=== PATIENT | male | born 1960 | race African-American/Black ===

== ENCOUNTER → 2016-11-06 | Outpatient (CLI) | payer OTHER ==
[2015-06-14 17:41] VITALS: BP 166/87
[2016-11-06 09:11] LABS: BASOPHILS % (AUTO) 0.8 % (0.2-1.0); EOSINOPHILS # (AUTO) 0.3 x10^3/uL (0.0-0.2); EOSINOPHILS % (AUTO) 5.3 % (0.9-2.9); HEMATOCRIT 36.1 % (42.0-54.0); HEMOGLOBIN 11.9 g/dL (13.5-18.0); LYMPHOCYTES # (AUTO) 1.7 X10^3/uL (1.3-2.9); LYMPHOCYTES % (AUTO) 31.2 % (21.0-51.0); MEAN CORPUSCULAR HEMOGLOBIN 29.4 pg (27.0-34.0); MEAN CORPUSCULAR HGB CONC 32.9 g/dL (33.0-35.0); MEAN CORPUSCULAR VOLUME 89.2 fL (80.0-100.0); MEAN PLATELET VOLUME 8.2 fL (7.4-11.0); MONOCYTES # (AUTO) 0.6 x10^3/uL (0.3-0.8); MONOCYTES % (AUTO) 10.2 % (0.0-13.0); NEUTROPHILS # (AUTO) 2.9 x10^3/uL (2.2-4.8); NEUTROPHILS % (AUTO) 52.5 % (42.0-75.0); PLATELET COUNT 244 X10^3/uL (150.0-450.0); RED BLOOD COUNT 4.05 X10^6/uL (4.7-6.0); WHITE BLOOD COUNT 5.6 X10^3/uL (3.6-10.0)
[2016-11-06 09:24] LABS: CREATININE,URINE 108.8 mg/dL (40-278); MICROALBUMIN,URINE 62.2 mg/L
[2016-11-06 09:38] LABS: RETICULOCYTE % 1.08 % (0.8-2.2)
[2016-11-06 09:48] LABS: TRANSFERRIN 192 mg/dL (202-364)
[2016-11-06 10:04] LABS: ALANINE AMINOTRANSFERASE 25 Units/L (12-78); ALBUMIN 3.4 g/dL (3.4-5.0); ALKALINE PHOSPHATASE 103 Units/L (46-116); ASPARTATE AMINO TRANSFERASE 14 Units/L (15-37); BLOOD UREA NITROGEN 10 mg/dL (7-18); CALCIUM 8.6 mg/dL (8.5-10.1); CARBON DIOXIDE 27.3 mmol/L (21-32); CHLORIDE 105 mmol/L (98-107); CHOL/HDL RATIO 3.3 (0.0-5.0); CHOLESTEROL 156 mg/dL (0-200); COR NA(FOR HYPERGLY) 144 mmol/L (136-145); CREATININE 0.83 mg/dL (0.70-1.30); GLUCOSE 168 mg/dL (65-99); HDL CHOLESTEROL 48 mg/dL (40-60); SODIUM 142 mmol/L (136-145); TRIGLYCERIDES 42 mg/dL (0-150); TSH (3RD GENERATION) 2.339 uIU/mL (0.358-3.74); eGFR BLACK RACES > 60 (>60); eGFR NON BLACK RACES > 60 (>60)
[2016-11-06 10:10] LABS: ERYTHROCYTE SEDIMENTATION RATE 34 MM/HOUR (0-15)
[2016-11-10 13:40] LABS: ANTI-NUCLEAR ANTIBODY TEST None Detected (None Detected)
== END ==
LOC: LAB 07:48
PROVIDERS: ATTEND Nurse Practitioner Family
DX: I10 Essential (primary) hypertension (principal); M15.8 Other polyosteoarthritis; E11.40 Type 2 diabetes mellitus with diabetic neuropathy, unspecified; D64.9 Anemia, unspecified
CPT/HCPCS: 36415; 80053; 80061; 82043; 82607; 82615; 82728; 82746; 83036; 83918; 84443; 84466; 85025; 85045; 85652; 86140; 86256; 86308; 86340

== ENCOUNTER → 2017-02-16 | Outpatient (CLI) | payer OTHER ==
[2015-06-14 17:41] VITALS: BP 166/87
[2017-02-16 07:36] LABS: BASOPHILS % (AUTO) 0.8 % (0.2-1.0); EOSINOPHILS # (AUTO) 0.3 x10^3/uL (0.0-0.2); EOSINOPHILS % (AUTO) 6.1 % (0.9-2.9); HEMATOCRIT 32.2 % (42.0-54.0); HEMOGLOBIN 10.9 g/dL (13.5-18.0); LYMPHOCYTES # (AUTO) 1.7 X10^3/uL (1.3-2.9); LYMPHOCYTES % (AUTO) 35.1 % (21.0-51.0); MEAN CORPUSCULAR HEMOGLOBIN 30.4 pg (27.0-34.0); MEAN CORPUSCULAR HGB CONC 33.9 g/dL (33.0-35.0); MEAN CORPUSCULAR VOLUME 89.5 fL (80.0-100.0); MEAN PLATELET VOLUME 7.8 fL (7.4-11.0); MONOCYTES # (AUTO) 0.6 x10^3/uL (0.3-0.8); MONOCYTES % (AUTO) 13.1 % (0.0-13.0); NEUTROPHILS # (AUTO) 2.2 x10^3/uL (2.2-4.8); NEUTROPHILS % (AUTO) 44.9 % (42.0-75.0); PLATELET COUNT 251 X10^3/uL (150.0-450.0); RED CELL DISTRIBUTION WIDTH 14.4 % (11.6-16.5); WHITE BLOOD COUNT 4.8 X10^3/uL (3.6-10.0)
--- NOTE | 2017-02-16 07:38 | RAD ---
HISTORY: Right shoulder pain Study: Right shoulder three view Comparison: None Findings: The patient is status post right shoulder hemiarthroplasty. The prosthetic humeral head is in good p osition within the glenoid. Visualized distal clavicle is intact as is the AC joint, scapula and vis ualized right upper ribs. No periprosthetic fracture is identified. IMPRESSION: Status post right shoulder hemiarthroplasty in good position without acute findings Reported By:
[2017-02-16 07:41] LABS: CREATININE,URINE 148.16 mg/dL (40-278); MICROALBUMIN,URINE 38.9 mg/L
[2017-02-16 07:44] LABS: HEMOGLOBIN A1C 8.5 % (4.5-6.2)
[2017-02-16 07:46] LABS: ALANINE AMINOTRANSFERASE 24 Units/L (12-78); ALBUMIN 3.3 g/dL (3.4-5.0); ALKALINE PHOSPHATASE 106 Units/L (46-116); ASPARTATE AMINO TRANSFERASE 17 Units/L (15-37); BLOOD UREA NITROGEN 19 mg/dL (7-18); CALCIUM 8.2 mg/dL (8.5-10.1); CHLORIDE 101 mmol/L (98-107); CHOL/HDL RATIO 3.2 (0.0-5.0); CHOLESTEROL 119 mg/dL (0-200); COR CA(FOR HYPOALB) 8.8 mg/dL (8.5-10.1); COR NA(FOR HYPERGLY) 140 mmol/L (136-145); CREATININE 1.24 mg/dL (0.70-1.30); GLUCOSE 205 mg/dL (65-99); HDL CHOLESTEROL 37 mg/dL (40-60); SODIUM 137 mmol/L (136-145); TOTAL PROTEIN 8.3 g/dL (6.4-8.2); TRIGLYCERIDES 76 mg/dL (0-150); eGFR BLACK RACES > 60 (>60); eGFR NON BLACK RACES > 60 (>60)
[2017-02-16 08:29] LABS: IRON 65 ug/dL (50-175); TOTAL IRON BINDING CAPACITY 220 ug/dL (250-450)
[2017-02-16 08:40] LABS: ERYTHROCYTE SEDIMENTATION RATE 36 MM/HOUR (0-15)
== END ==
LOC: LAB 06:47
PROVIDERS: ATTEND Nurse Practitioner Family
DX: D53.8 Other specified nutritional anemias (principal); I10 Essential (primary) hypertension; E11.69 Type 2 diabetes mellitus with other specified complication; M25.511 Pain in right shoulder; E55.9 Vitamin D deficiency, unspecified
CPT/HCPCS: 36415; 73030; 80053; 80061; 82043; 82306; 82746; 83036; 83540; 83550; 85025; 85652; 86140

== ENCOUNTER → 2017-08-26 | Outpatient (CLI) | payer OTHER ==
[2015-06-14 17:41] VITALS: BP 166/87
[2017-08-26 08:03] LABS: CREATININE,URINE 127.37 mg/dL (40-278)
[2017-08-26 08:05] LABS: BASOPHILS # (AUTO) 0.1 X10^3/uL (0.0-0.1); BASOPHILS % (AUTO) 1.1 % (0.2-1.0); EOSINOPHILS # (AUTO) 0.5 x10^3/uL (0.0-0.2); EOSINOPHILS % (AUTO) 6.6 % (0.9-2.9); HEMATOCRIT 35.5 % (42.0-54.0); HEMOGLOBIN 11.8 g/dL (13.5-18.0); LYMPHOCYTES # (AUTO) 2.2 X10^3/uL (1.3-2.9); LYMPHOCYTES % (AUTO) 29.8 % (21.0-51.0); MEAN CORPUSCULAR HEMOGLOBIN 29.4 pg (27.0-34.0); MEAN CORPUSCULAR HGB CONC 33.3 g/dL (33.0-35.0); MEAN CORPUSCULAR VOLUME 88.1 fL (80.0-100.0); MONOCYTES # (AUTO) 0.7 x10^3/uL (0.3-0.8); MONOCYTES % (AUTO) 9.9 % (0.0-13.0); NEUTROPHILS # (AUTO) 3.8 x10^3/uL (2.2-4.8); NEUTROPHILS % (AUTO) 52.6 % (42.0-75.0); PLATELET COUNT 212 X10^3/uL (150.0-450.0); RED BLOOD COUNT 4.03 X10^6/uL (4.7-6.0); RED CELL DISTRIBUTION WIDTH 14.7 % (11.6-16.5); WHITE BLOOD COUNT 7.2 X10^3/uL (3.6-10.0)
[2017-08-26 08:08] LABS: ALANINE AMINOTRANSFERASE 25 Units/L (12-78); ALBUMIN 3.2 g/dL (3.4-5.0); ALKALINE PHOSPHATASE 135 Units/L (46-116); ASPARTATE AMINO TRANSFERASE 13 Units/L (15-37); BLOOD UREA NITROGEN 12 mg/dL (7-18); CALCIUM 8.8 mg/dL (8.5-10.1); CARBON DIOXIDE 27.7 mmol/L (21-32); CHLORIDE 99 mmol/L (98-107); CHOL/HDL RATIO 3.2 (0.0-5.0); CHOLESTEROL 131 mg/dL (0-200); COR CA(FOR HYPOALB) 9.4 mg/dL (8.5-10.1); COR NA(FOR HYPERGLY) 141 mmol/L (136-145); CREATININE 1.13 mg/dL (0.70-1.30); HDL CHOLESTEROL 41 mg/dL (40-60); SODIUM 135 mmol/L (136-145); TOTAL PROTEIN 8.7 g/dL (6.4-8.2); TRIGLYCERIDES 55 mg/dL (0-150); eGFR BLACK RACES > 60 (>60); eGFR NON BLACK RACES > 60 (>60)
[2017-08-26 08:12] LABS: PLATELET MORPHOLOGY COMMENT NORMAL (NORMAL)
[2017-08-26 08:15] LABS: MICROALBUMIN,URINE 111.7 mg/L
[2017-08-26 08:25] LABS: IRON 39 ug/dL (50-175); TOTAL IRON BINDING CAPACITY 241 ug/dL (250-450); TOTAL PSA 0.63 ng/mL (0.13-4.0)
[2017-08-26 08:29] LABS: HEMOGLOBIN A1C 11.2 % (4.5-6.2)
== END ==
LOC: LAB 07:13
PROVIDERS: ATTEND Nurse Practitioner Family
DX: R35.8 Other polyuria (principal); Z86.39 Personal history of other endocrine, nutritional and metabolic disease; D53.8 Other specified nutritional anemias; E11.9 Type 2 diabetes mellitus without complications
CPT/HCPCS: 36415; 80053; 80061; 82043; 82306; 82728; 82746; 83036; 83540; 83550; 84153; 85025

== ENCOUNTER → 2017-09-28 | Outpatient (CLI) | payer OTHER ==
[2015-06-14 17:41] VITALS: BP 166/87
--- NOTE | 2017-09-28 12:50 | RAD ---
HISTORY: Right shoulder pain. No history of trauma. Study: Right shoulder: Three views. The external and internal rotated images are overpenetrated, p articular the externally rotated. Comparison: 02/16/2017 Findings: Minimal acromioclavicular joint degeneration is noted. A right shoulder prosthesis is present appear ing to be slightly superiorly subluxed, unchanged. There is thinning of the subacromial space. Ther e appears to be a small amount of heterotopic bone formation. The stem of the prosthesis appears to be imbedded in methacrylate. The stem of the prosthesis is mildly angulated in the proximal humerus, unchanged. Moderate glenohumeral joint deformity is noted, most likely due to degenerative change. IMPRESSION: 1. A right shoulder prosthesis is present without complicating features. 2. No significant change is noted when compared to the prior examination. Reported By:
== END ==
LOC: RAD 09:39
PROVIDERS: ATTEND Nurse Practitioner Family
DX: M25.511 Pain in right shoulder (principal)
CPT/HCPCS: 73030

== ENCOUNTER → 2017-11-03 | Outpatient (CLI) | payer OTHER ==
[2015-06-14 17:41] VITALS: BP 166/87
--- NOTE | 2017-11-03 08:56 | RAD ---
HISTORY: Shortness of breath Study: Two views the chest Comparison: June 14, 2015 Findings: The trachea is midline. The cardiac silhouette is enlarged and similar in appearance to prior exam. The lungs are clear without focal infiltrate or effusion. The aorta is partially calcified and to rtuous. Postoperative changes of right shoulder arthroplasty are partially visualized. IMPRESSION: 1. Cardiomegaly. Reported By:
[2017-11-03 09:07] LABS: BASOPHILS # (AUTO) 0.1 X10^3/uL (0.0-0.1); BASOPHILS % (AUTO) 0.7 % (0.2-1.0); EOSINOPHILS # (AUTO) 0.3 x10^3/uL (0.0-0.2); EOSINOPHILS % (AUTO) 3.2 % (0.9-2.9); HEMATOCRIT 32.9 % (42.0-54.0); HEMOGLOBIN 11.1 g/dL (13.5-18.0); LYMPHOCYTES % (AUTO) 23.4 % (21.0-51.0); MEAN CORPUSCULAR HEMOGLOBIN 28.1 pg (27.0-34.0); MEAN CORPUSCULAR HGB CONC 33.6 g/dL (33.0-35.0); MEAN CORPUSCULAR VOLUME 83.7 fL (80.0-100.0); MEAN PLATELET VOLUME 7.6 fL (7.4-11.0); MONOCYTES # (AUTO) 0.7 x10^3/uL (0.3-0.8); MONOCYTES % (AUTO) 8.1 % (0.0-13.0); NEUTROPHILS # (AUTO) 5.7 x10^3/uL (2.2-4.8); NEUTROPHILS % (AUTO) 64.6 % (42.0-75.0); PLATELET COUNT 481 X10^3/uL (150.0-450.0); RED BLOOD COUNT 3.93 X10^6/uL (4.7-6.0); RED CELL DISTRIBUTION WIDTH 15.1 % (11.6-16.5); WHITE BLOOD COUNT 8.8 X10^3/uL (3.6-10.0)
[2017-11-03 09:28] LABS: ALANINE AMINOTRANSFERASE 42 Units/L (12-78); ALBUMIN 2.9 g/dL (3.4-5.0); ALKALINE PHOSPHATASE 89 Units/L (46-116); ASPARTATE AMINO TRANSFERASE 24 Units/L (15-37); BLOOD UREA NITROGEN 13 mg/dL (7-18); CALCIUM 8.8 mg/dL (8.5-10.1); CARBON DIOXIDE 24.6 mmol/L (21-32); CHLORIDE 100 mmol/L (98-107); COR CA(FOR HYPOALB) 9.7 mg/dL (8.5-10.1); COR NA(FOR HYPERGLY) 139 mmol/L (136-145); SODIUM 137 mmol/L (136-145); TOTAL PROTEIN 11.2 g/dL (6.4-8.2); eGFR BLACK RACES > 60 (>60); eGFR NON BLACK RACES > 60 (>60)
== END | disposition home or self-care (01) | DRG 204 ==
LOC: LAB 08:17
PROVIDERS: ATTEND Nurse Practitioner Family
DX: R06.02 Shortness of breath (principal); I51.7 Cardiomegaly
CPT/HCPCS: 36415; 71046; 80053; 85025

== ENCOUNTER → 2017-11-24 | Outpatient (CLI) | payer OTHER ==
[2015-06-14 17:41] VITALS: BP 166/87
[2017-11-24 08:56] LABS: CREATININE,URINE 182.88 mg/dL (40-278); MICROALBUMIN,URINE 44.5 mg/L
[2017-11-24 09:06] LABS: CHOL/HDL RATIO 3.3 (0.0-5.0)
--- NOTE | 2017-11-24 09:08 | RAD ---
Examination: X-rays of the right ankle. Clinical history: Chronic right ankle pain. Technique: Three views of the right ankle were obtained. Comparison: None available. Findings: A medially placed metallic plate and multiple screws is seen associated with the distal tibia, risk management internship ally fixating an old healed fracture. Calcific/ossific densities are seen at the inferior aspects of the medial and lateral malleoli, likel y due to accessory ossicles or sequela from old injuries. No acute fracture, dislocation, or destructive bony lesion is noted. Mild to moderate osteoarthritic changes are noted at the tibiotalar joint. Bony spurring is seen at the plantar and posterior aspects of the calcaneus, consistent with enthesop athy. No soft tissue abnormality is noted. Impression: 1. No acute fracture or dislocation. 2. Arthropathy, as described above. Reported By:
== END ==
LOC: LAB 07:44
PROVIDERS: ATTEND Nurse Practitioner Family
DX: E78.4 Other hyperlipidemia (principal); Z86.39 Personal history of other endocrine, nutritional and metabolic disease; E11.9 Type 2 diabetes mellitus without complications; M25.571 Pain in right ankle and joints of right foot
CPT/HCPCS: 36415; 73610; 80061; 82043; 82306

== ENCOUNTER 2017-12-02 23:23 | Emergency (ER) | payer OTHER ==
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
[2017-12-02 23:44] VITALS: BP 157/81; BMI 40.3
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
== END 2017-12-03 00:20 | disposition home or self-care (01) ==
LOC: ER 23:23
DX: S43.401A Unspecified sprain of right shoulder joint, initial encounter (principal); V49.9XXA Car occupant (driver) (passenger) injured in unspecified traffic accident, initial encounter
CPT/HCPCS: 73030; 99282

== ENCOUNTER 2018-12-13 14:16 | Inpatient (IN) ==
[2018-12-13 14:24] VITALS: BMI 39.5
[2018-12-13] MEDS ORDERED: LASIX IVP ONE (14:35)
[2018-12-13] MEDS ORDERED: LASIX ONE (14:35)
[2018-12-13 14:36] LABS: ABG BASE EXCESS 0.6 mmol/L (-2.0-2.0); ABG HCO3 24.5 mmol/L (22-26)
--- NOTE | 2018-12-13 14:39 | DR.EXTPAIN ---
HPI Time seen Time Seen by Provider: 12/13/18 14:34 PCP Primary Care Physician: DOMINIC ESCALERA Complaint/Symptoms Chief Complaint Doctor Comments: A 58 y/o obese male presenting with SOB and feeling dizzy onset about 2 hrs. 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 Chief Complaint:: PT C/O FALLING AT HOME AND BEING VERY SOB AND THAT IT STARTED A FEW HOURS AGO . PT IS VERY SOB, AND MOLINA PT HAS AUDIBLE WHEEZING AND EDEMA TO HIS EYE LIDS PT DENIES ANY RESP PROBLEMS ,BR Self Treatment fo Chief Complaint: RESP LABORDED Nurses notes reviewed Nurses Notes Review: Yes Source History Provided: Patient Mode of arrival Mode of Arrival: Ambulatory Timing Onset of Chief Complaint: 12/13/18 Context History of: None Associated signs and symptoms Associated Signs and Symptoms: None PMH PMH Past Medical History: Yes Past Medical History: Diabetes and Hypertension Past Surgical History: Yes Surgical History: Ortho Surgery Family History History of Family Medical Conditions: Yes Family Medical History: Diabetes Mellitus and Cancer Social History Does patient currently use any type of tobacco product: No Have you used tobacco products in the last 12 months: No Type of Tobacco Use: None Does any household member use tobacco: No Alcohol Use: None Do you use any recreational Drugs:: No Lives With: Family Lives Where: Home infectious screening In the last 2 months have you had wt loss of >10#?: NO Have you had fever, night sweats or hemotysis?: No Have you traveled outside the country in the last 6 months?: No Isolation: Standard ROS Review of Systems Constitutional: No Symptoms Reported Eyes: No Symptoms Reported ENTM: No Symptoms Reported Respiratoy: Short of Breath Cardiovascular: No Symptoms Reported Gastrointestinal/Abdominal: No Symptoms Reported Genitourinary: No Symptoms Reported Neurological: Dizziness Musculoskeletal: No Symptoms Reported Integumentary: No Symptoms Reported Hematologic/Lymphatic: No Symptoms Reported Endocrine: No Symptoms Reported Psychiatric: No Symptoms Reported PE Vital Signs Vitals: Temperature 98.0 F Pulse Rate 56 Respiratory Rate 15 Blood Pressure [Right Arm] 160/79 Blood Pressure [Left Arm] 166/87 Blood Pressure 177/81 O2 Sat by Pulse Oximetry 91 General Limitations: No Limitations General Appearance: Alert, In Distress (mild, breathing related ) and Obese (morbid) Head Head Exam: Normal Inspection, Atraumatic and Normocephalic Eyes Eye exam: Normal Appearance, PERRL and EOMI ENT ENT Exam: Normal Exam, Normal Oropharynx and Mucous Membranes Moist Neck Neck Exam: Normal Inspection, Full ROM and Trachea Midline Chest Chest Inspection: Normal Inspection and Symmetric Chest Wall Rise Respiratory Respiratory Exam: Bilateral: Wheezing, Bilateral: Rales, Bilateral: Crackles and Bilateral: Decreased Breath Sounds Cardiovascular Cardiovascular Exam: Regular Rate, Normal Rhythm, +S1 and +S2 Abdominal Exam Abdominal Exam: Normal Inspection, Normal Bowel Sounds and Soft Lower Extremities Lower Leg Exam: Other (2+ pitting edema to legs b/l. Lt. great toe s/p amputation ant MTP joint.) Gait Exam: Not Tested/Not Observed Neurological Neurological Exam: Alert and Oriented X3 Psychiatric Psychiatric Exam: Normal Affect and Normal Mood Skin Skin Exam: Warm, Dry and Other (chronic skin changes noted of skin on feet) COURSE Education/Counseling Education/Counseling: Patient, Education and Counseling Educated On: Treatment, Diagnosis, Prognosis and Needs for Follow Up ROR Labs Reviewed Result Diagrams: 12/13/18 14:22 12/13/18 14:22 Laboratory: WBC 7.4 X10^3/uL (3.6-10.0) 12/13/18 14:22 RBC 3.77 X10^6/uL (4.7-6.0) L 12/13/18 14:22 Hgb 11.0 g/dL (13.5-18.0) L 12/13/18 14:22 Hct 33.6 % (42.0-54.0) L 12/13/18 14:22 MCV 89.0 fL (80.0-100.0) 12/13/18 14:22 MCH 29.2 pg (27.0-34.0) 12/13/18 14:22 MCHC 32.8 g/dL (33.0-35.0) L 12/13/18 14:22 RDW 16.0 % (11.6-16.5) 12/13/18 14:22 Plt Count 239 X10^3/uL (150.0-450.0) 12/13/18 14:22 MPV 8.5 fL (7.4-11.0) 12/13/18 14:22 Neut % (Auto) 73.3 % (42.0-75.0) 12/13/18 14:22 Lymph % (Auto) 15.5 % (21.0-51.0) L 12/13/18 14:22 [place]ades % (Auto) 6.6 % (0.0-13.0) 12/13/18 14:22 Eos % (Auto) 4.0 % (0.9-2.9) H 12/13/18 14:22 Baso % (Auto) 0.6 % (0.2-1.0) 12/13/18 14:22 Neut # (Auto) 5.4 x10^3/uL (2.2-4.8) H 12/13/18 14:22 Lymph # (Auto) 1.1 X10^3/uL (1.3-2.9) L 12/13/18 14:22 [place] # (Auto) 0.5 x10^3/uL (0.3-0.8) 12/13/18 14:22 Eos # (Auto) 0.3 x10^3/uL (0.0-0.2) H 12/13/18 14:22 Baso # (Auto) 0.0 X10^3/uL (0.0-0.1) 12/13/18 14:22 Absolute Nucleated RBC 0.0 /100WBC 12/13/18 14:22 INR Target Range - 12/13/18 14:22 INR 1.13 (0.8-1.3) 12/13/18 14:22 APTT 34.5 SECONDS (22.9-36.5) 12/13/18 14:22 PTT Comment - 12/13/18 14:22 D-Dimer 381 ng/mL (0-400) 12/13/18 14:22 Sample Site Right brachial 12/13/18 14:28 ABG pH 7.440 (7.35-7.45) 12/13/18 14:28 ABG pCO2 36.0 mmHg (35.0-45.0) 12/13/18 14:28 ABG pO2 53.0 mmHg (80.0-100.0) L 12/13/18 14:28 ABG HCO3 24.5 mmol/L (22-26) 12/13/18 14:28 ABG O2 Saturation 88.0 % (90-100) L 12/13/18 14:28 ABG Base Excess 0.6 mmol/L (-2.0-2.0) 12/13/18 14:28 Bear Test Na 12/13/18 14:28 A-a Gradient 52.0 mmHg 12/13/18 14:28 FiO2 21.0 12/13/18 14:28 Blood Gas Comments Abdirahman well aw 12/13/18 14:28 Sodium 143 mmol/L (136-145) 12/13/18 14:22 Corrected Sodium 145 mmol/L (136-145) 12/13/18 14:22 Potassium 3.3 mmol/L (3.5-5.1) L 12/13/18 14:22 Chloride 107 mmol/L (98-107) 12/13/18 14:22 Carbon Dioxide 24.2 mmol/L (21-32) 12/13/18 14:22 BUN 11 mg/dL (7-18) 12/13/18 14:22 Creatinine 1.01 mg/dL (0.70-1.30) 12/13/18 14:22 Est GFR (MDRD) Af Amer > 60 (>60) 12/13/18 14:22 Est GFR (MDRD) Non-Af > 60 (>60) 12/13/18 14:22 Glucose 188 mg/dL (65-99) H 12/13/18 14:22 Calcium 8.7 mg/dL (8.5-10.1) 12/13/18 14:22 Corrected Calcium 9.3 mg/dL (8.5-10.1) 12/13/18 14:22 Magnesium 1.8 mg/dL (1.7-2.9) 12/13/18 14:22 Total Bilirubin 0.40 mg/dL (0.2-1.0) 12/13/18 14:22 AST 12 Units/L (15-37) L 12/13/18 14:22 ALT 14 Units/L (12-78) 12/13/18 14:22 Alkaline Phosphatase 94 Units/L (46-116) 12/13/18 14:22 Creatine Kinase 127 Units/L (39-308) 12/13/18 14:22 CK-MB (CK-2) 1.3 ng/mL (0-4.0) 12/13/18 14:22 CK/CKMB % Calc 1.0 % (<4) 12/13/18 14:22 Troponin I < 0.02 ng/mL (0-1.5) 12/13/18 14:22 B-Natriuretic Peptide 241 pg/mL (0-79) H 12/13/18 14:22 Total Protein 7.6 g/dL (6.4-8.2) 12/13/18 14:22 Albumin 3.3 g/dL (3.4-5.0) L 12/13/18 14:22 Globulin 4.3 g/dL (2.5-4.5) 12/13/18 14:22 Albumin/Globulin Ratio 0.8 Ratio (1.1-2.1) L 12/13/18 14:22 Specimen Type Catherized urine 12/13/18 14:47 Urine Color Yellow (YELLOW) 12/13/18 14:47 Urine Appearance Hazy (CLEAR) 12/13/18 14:47 Urine pH 5.0 (5.0 - 8.0) 12/13/18 14:47 Ur Specific [place] 1.015 (1.000-1.030) 12/13/18 14:47 Urine Protein 2+ (NEGATIVE) 12/13/18 14:47 Urine Glucose (UA) 4+ (NEGATIVE) 12/13/18 14:47 Urine Ketones Negative (NEGATIVE) 12/13/18 14:47 Urine Occult Blood 1+ (NEGATIVE) 12/13/18 14:47 Urine Nitrite Negative (NEGATIVE) 12/13/18 14:47 Urine Bilirubin Negative (NEGATIVE) 12/13/18 14:47 Urine Urobilinogen Normal (NORMAL) 12/13/18 14:47 Ur Leukocyte Esterase Negative (NEGATIVE) 12/13/18 14:47 Urine RBC 3-5 /HPF (NONE SEEN) 12/13/18 14:47 Urine WBC 3-5 /HPF (NONE SEEN) 12/13/18 14:47 Ur Squamous Epith Cells Rare /HPF (NEGATIVE) 12/13/18 14:47 Urine Bacteria Trace /HPF (NEGATIVE) 12/13/18 14:47 Urine Mucus Few /HPF (NEGATIVE) 12/13/18 14:47 Ur Culture Indicated? No/not indicated 12/13/18 14:47 XRAY XRAY Interpreted by: Self XRAY Findings: cardiomegaly with vascular congestion. no effusions noted. EKG Rate: 63 [place]: LAD Rhythm: NSR Block: None Hypertrophy: None ST: Infarct Diagnosis Discharge Problem: Respiratory failure with hypoxia Qualifiers: Chronicity: acute Qualified Code(s): J96.01 - Acute respiratory failure with hypoxia Hypertensive heart disease with CHF Qualifiers: Heart failure type: unspecified Qualified Code(s): I11.0 - Hypertensive heart disease with heart failure Diabetes Qualifiers: Diabetes mellitus type: type 2 Diabetes mellitus jail insulin use: without jail use Diabetes mellitus complication status: with circulatory complication Diabetes mellitus complication detail: with other circulatory complications Qualified Code(s): E11.59 - Type 2 diabetes mellitus with other circulatory complications
[2018-12-13 14:46] LABS: BASOPHILS % (AUTO) 0.6 % (0.2-1.0); EOSINOPHILS # (AUTO) 0.3 x10^3/uL (0.0-0.2); HEMATOCRIT 33.6 % (42.0-54.0); LYMPHOCYTES # (AUTO) 1.1 X10^3/uL (1.3-2.9); LYMPHOCYTES % (AUTO) 15.5 % (21.0-51.0); MEAN CORPUSCULAR HEMOGLOBIN 29.2 pg (27.0-34.0); MEAN CORPUSCULAR HGB CONC 32.8 g/dL (33.0-35.0); MEAN PLATELET VOLUME 8.5 fL (7.4-11.0); MONOCYTES # (AUTO) 0.5 x10^3/uL (0.3-0.8); MONOCYTES % (AUTO) 6.6 % (0.0-13.0); NEUTROPHILS # (AUTO) 5.4 x10^3/uL (2.2-4.8); NEUTROPHILS % (AUTO) 73.3 % (42.0-75.0); PLATELET COUNT 239 X10^3/uL (150.0-450.0); RED BLOOD COUNT 3.77 X10^6/uL (4.7-6.0); WHITE BLOOD COUNT 7.4 X10^3/uL (3.6-10.0)
[2018-12-13] MEDS ORDERED: PROVENTIL NEB TX 0.083% 2.5MG/ 3ML ONE (14:47)
[2018-12-13] MEDS ORDERED: ACCUNEB 1.25 MG NEBULE NEB ONE (14:48)
[2018-12-13] MEDS ORDERED: PROVENTIL NEB TX 0.083% 2.5MG/ 3ML NEB ONE (14:52)
[2018-12-13 14:54] LABS: BILIRUBIN,URINE NEGATIVE (NEGATIVE); BLOOD/HEMOGLOBIN,URINE 1+ (NEGATIVE); GLUCOSE, URINE 4+ (NEGATIVE); KETONES,URINE NEGATIVE (NEGATIVE); LEUKOCYTE ESTERASE ,URINE NEGATIVE (NEGATIVE); NITRITES,URINE NEGATIVE (NEGATIVE); PROTEIN,URINE 2+ (NEGATIVE); UROBILINOGEN,URINE NORMAL (NORMAL)
[2018-12-13 14:56] LABS: APPEARANCE,URINE HAZY (CLEAR); COLOR,URINE YELLOW (YELLOW)
[2018-12-13 15:00] LABS: BACTERIA,URINE TRACE /HPF (NEGATIVE); MUCUS,URINE FEW /HPF (NEGATIVE); SQUAMOUS EPITHELIAL CELL,UR RARE /HPF (NEGATIVE)
[2018-12-13 15:04] LABS: ALANINE AMINOTRANSFERASE 14 Units/L (12-78); ALBUMIN 3.3 g/dL (3.4-5.0); ALKALINE PHOSPHATASE 94 Units/L (46-116); ASPARTATE AMINO TRANSFERASE 12 Units/L (15-37); BLOOD UREA NITROGEN 11 mg/dL (7-18); CALCIUM 8.7 mg/dL (8.5-10.1); CARBON DIOXIDE 24.2 mmol/L (21-32); CHLORIDE 107 mmol/L (98-107); COR CA(FOR HYPOALB) 9.3 mg/dL (8.5-10.1); COR NA(FOR HYPERGLY) 145 mmol/L (136-145); CREATINE KINASE 127 Units/L (39-308); CREATINE KINASE MB 1.3 ng/mL (0-4.0); CREATININE 1.01 mg/dL (0.70-1.30); MAGNESIUM 1.8 mg/dL (1.7-2.9); SODIUM 143 mmol/L (136-145); TOTAL PROTEIN 7.6 g/dL (6.4-8.2); TROPONIN I < 0.02 ng/mL (0-1.5); eGFR NON BLACK RACES > 60 (>60)
[2018-12-13 15:07] LABS: B-TYPE NATRIURETIC PEPTIDE 241 pg/mL (0-79)
[2018-12-13] MEDS ORDERED: APRESOLINE INJ 20 MG VIAL IVP ONE ×2 (15:27→17:06)
--- NOTE | 2018-12-13 15:31 | RAD ---
Chest, 1 view Indication: Chest pain Comparison: 11/03/2017 Findings: Cardiac silhouette enlargement is unchanged. There are increased interstitial markings bilaterally with patchy left midlung infiltrate. No significant pleural effusion or pneumothorax. Impression: Cardiomegaly with interstitial prominence suggesting mild edema. Left midlung infiltrate, possibly alveolar edema or pneumonitis. Correlation recommended. Consider two-view chest for further evaluation. Reported By:
[2018-12-13] MEDS ORDERED: APRESOLINE INJ 20 MG VIAL ONE ×2 (15:34→17:09)
[2018-12-13] MEDS ORDERED: K-LYTE EFFERVESCENT PO ONE (17:41)
[2018-12-13] MEDS ORDERED: GLUCOPHAGE ONE (18:11)
[2018-12-13] MEDS: GLUCOPHAGE PO SCH (18:20)
[2018-12-13] MEDS ORDERED: SALINE 3% 15 ML NEB TX NEB ONE (18:27)
[2018-12-13] MEDS: PROVENTIL NEB TX 0.083% 2.5MG/ 3ML NEB SCH (18:29)
[2018-12-13] MEDS: LASIX IVP SCH (20:55)
[2018-12-13] MEDS: ROXICODONE TAB 15 MG PO PRN (20:56)
[2018-12-13] MEDS: ZANAFLEX PO SCH (20:56)
[2018-12-13] MEDS: NEURONTIN TAB 600 MG PO SCH (20:57)
[2018-12-13] MEDS: COREG TAB 12.5 MG PO SCH (20:57)
[2018-12-13] MEDS: MAGNESIUM SULFATE 1 GRAM/100 mL PREMIX 1 GM/100 ML BAG IV PRN ×2 (21:03→22:06)
[2018-12-13] MEDS: APRESOLINE TAB 25 MG PO SCH (21:03)
[2018-12-13] MEDS: JANUVIA PO SCH (21:03)
[2018-12-13] MEDS ORDERED: NS 250 ML IV 250 ML ONE (21:13)
[2018-12-13] MEDS: NS 250 ML IV 250 ML IV SCH (21:24)
[2018-12-14] MEDS: PROVENTIL NEB TX 0.083% 2.5MG/ 3ML NEB SCH ×4 (01:20→17:24)
[2018-12-14 05:22] LABS: BASOPHILS % (AUTO) 0.7 % (0.2-1.0); EOSINOPHILS # (AUTO) 0.3 x10^3/uL (0.0-0.2); EOSINOPHILS % (AUTO) 4.4 % (0.9-2.9); HEMATOCRIT 32.8 % (42.0-54.0); HEMOGLOBIN 10.9 g/dL (13.5-18.0); LYMPHOCYTES # (AUTO) 1.4 X10^3/uL (1.3-2.9); LYMPHOCYTES % (AUTO) 18.8 % (21.0-51.0); MEAN CORPUSCULAR HEMOGLOBIN 29.6 pg (27.0-34.0); MEAN CORPUSCULAR HGB CONC 33.2 g/dL (33.0-35.0); MEAN CORPUSCULAR VOLUME 89.1 fL (80.0-100.0); MONOCYTES # (AUTO) 0.8 x10^3/uL (0.3-0.8); NEUTROPHILS # (AUTO) 4.8 x10^3/uL (2.2-4.8); NEUTROPHILS % (AUTO) 65.1 % (42.0-75.0); PLATELET COUNT 240 X10^3/uL (150.0-450.0); RED BLOOD COUNT 3.69 X10^6/uL (4.7-6.0); RED CELL DISTRIBUTION WIDTH 15.8 % (11.6-16.5); WHITE BLOOD COUNT 7.4 X10^3/uL (3.6-10.0)
[2018-12-14 05:35] LABS: ALANINE AMINOTRANSFERASE 13 Units/L (12-78); ALBUMIN 3.1 g/dL (3.4-5.0); ALKALINE PHOSPHATASE 73 Units/L (46-116); ASPARTATE AMINO TRANSFERASE 10 Units/L (15-37); BLOOD UREA NITROGEN 11 mg/dL (7-18); CALCIUM 8.5 mg/dL (8.5-10.1); CARBON DIOXIDE 29.5 mmol/L (21-32); CHLORIDE 106 mmol/L (98-107); COR CA(FOR HYPOALB) 9.2 mg/dL (8.5-10.1); CREATININE 1.07 mg/dL (0.70-1.30); SODIUM 144 mmol/L (136-145); TOTAL PROTEIN 7.2 g/dL (6.4-8.2); eGFR NON BLACK RACES > 60 (>60)
[2018-12-14] MEDS: APRESOLINE TAB 25 MG PO SCH ×3 (05:57→21:04)
[2018-12-14] MEDS ORDERED: K-DUR TAB 20 MEQ PO ONE (06:23)
[2018-12-14] MEDS ORDERED: K-DUR TAB 20 MEQ ONE (06:24)
[2018-12-14] MEDS ORDERED: GLUCOPHAGE ONE (08:05)
[2018-12-14] MEDS ORDERED: ZESTRIL TAB 20 MG ONE (08:06)
[2018-12-14] MEDS: GLUCOPHAGE PO SCH (08:54)
[2018-12-14] MEDS: LASIX IVP SCH (08:54)
[2018-12-14] MEDS: NEURONTIN TAB 600 MG PO SCH ×2 (08:55→21:08)
[2018-12-14] MEDS: ZESTRIL TAB 20 MG PO SCH (08:55)
[2018-12-14] MEDS: JANUVIA PO SCH (08:55)
[2018-12-14] MEDS: COREG TAB 12.5 MG PO SCH ×2 (08:55→21:04)
[2018-12-14] MEDS: K-LYTE EFFERVESCENT PO SCH (08:55)
[2018-12-14] MEDS: ZANAFLEX PO SCH ×2 (08:55→21:05)
[2018-12-14] MEDS: LOVENOX INJ 40 MG SYR SC SCH (08:56)
[2018-12-14] MEDS: MOBIC TAB 15 MG PO SCH (08:56)
[2018-12-14] MEDS ORDERED: INVOKANA PO SCH (09:00)
[2018-12-14] MEDS ORDERED: LASIX IVP SCH ×2 (09:00→21:00)
[2018-12-14] MEDS: ROXICODONE TAB 15 MG PO PRN (09:31)
[2018-12-14] MEDS: NS 250 ML IV 250 ML IV SCH ×2 (10:31→13:55)
[2018-12-14] MEDS ORDERED: PHARMACY CONSULT - DOSE _____ XX SCH (12:00)
--- NOTE | 2018-12-14 13:09 | VAS ---
History: Bilateral leg swelling Study: Bilateral lower extremity Doppler ultrasound of the deep veins Findings: The deep veins are widely patent with good Doppler flow and compression and augmentation. There is a 1.77 cm maximum diameter left inguinal lymph node. There is a right inguinal lymph node measuring up to 2.4 cm maximum length. Impression: 1. No evidence for deep venous thrombosis 2. Bilateral inguinal adenopathy Reported By:
--- NOTE | 2018-12-14 13:15 | RAD ---
History: Left foot pain and edema Study: Four views of the left foot Comparison: None Findings: The great toe is absent. There is callus about a healing or healed fracture of the mid diaphysis of the proximal phalanx of the 2nd toe. There is pes planus. There is diffuse soft tissue swelling or edema. There appears to be fusion of the ankle joint. Impression: 1. Old fracture of the proximal phalanx of the 2nd toe and absent great toe 2. Ankylosis of the ankle Reported By:
[2018-12-14 13:46] LABS: CKMB % 1.5 % (<4); CREATINE KINASE 67 Units/L (39-308); CREATINE KINASE MB < 1.0 ng/mL (0-4.0); TROPONIN I < 0.02 ng/mL (0-1.5)
[2018-12-14] MEDS: HumuLIN R SUBCUT PRN (13:51)
[2018-12-14] MEDS: ZOSYN VIAL 3.375 GRAMS 3.375 G in NS 100 ML IV + SPIKE MINIBAG* 100 ML IV SCH ×2 (13:51→21:05)
--- NOTE | 2018-12-14 13:54 | DR.H&P ---
H&P - History & Physical for Day of: H&P Date: 12/13/18 - Chief Complaint Chief Complaint: syncope, "passed out" respiratory distress - History of Present Illness History of Present Illness: 58 BM ER ADMISSION AFTER FAMILY REPORTS HE HAS FEELI NG SICK AND PASSED OUT ON THEM. PT WAS VERY SOB, WITH DIFFUSE WHEEZING. PT HAS PMH OF DM, ASTHMA. PT DENIES ANY CARDIAC HISTORY, NO STENTS RO BYPASS. PT STATES ILLNESS STARTED SUDDENING PRIOR TO ARRIVAL TO ER. PT HYPOXIA ON ABG, WITH PNEUMONIA NOTED ON CXR. - Past Medical History Past Medical History: Hypertension, Diabetes - Past Surgical History Surgical History: Ortho Surgery - Family History Family Medical History: Diabetes Mellitus, Cancer, Hypertension - Social History Does patient currently use any type of tobacco product: No Have you used tobacco products in the last 12 months: No Type of Tobacco Use: None Does any household member use tobacco: No Alcohol Use: None Drug Use: None - Medications Home Medications: No Known Drug Allergies Allergy (Verified 12/13/18 14:24) CONTINUE taking the following medications canagliflozin [Invokana] 100 mg PO DAILY 12/13/18 [History] carvedilol 25 mg PO DAILY 12/13/18 [History] furosemide 20 mg PO DAILY 12/13/18 [History] gabapentin 600 mg PO BID 12/13/18 [History] meloxicam 7.5 mg PO DAILY 12/13/18 [History] oxycodone 15 mg PO TID PRN 12/13/18 [History] sitagliptin-metformin [Janumet] 1 tab PO BID 12/13/18 [History] - Review of Systems Constitutional: Chills, Weakness, Malaise Eyes: No Symptoms Reported ENT: No Symptoms Reported Respiratory: Shortness of Breath, Wheezing Cardiovascular: Edema Gastrointestinal: No Symptoms Reported Genitourinary: No Symptoms Reported Musculoskeletal: Leg Pain, Foot Pain Skin: No Symptoms Reported Neurological: Weakness - Physical Exam Vital Signs: Temperature 98.0 F Pulse Rate [Left Brachial] 70 Pulse Rate 71 Respiratory Rate 20 Blood Pressure [Right Arm] 160/79 Blood Pressure [Left Arm] 128/65 Blood Pressure 187/85 O2 Sat by Pulse Oximetry 98 Oriented: Normal Eyes: Normal Ear: Normal Nose: Normal Throat: Normal Respiratory: RML Diminished, RLL Diminished, LML Diminished, LLL Diminished Cardiovascular: Edema : Normal, Hematuria Palpation: Normal Tenderness: Normal Skin: Red, Tender Musculoskeletal: Left, Back:Lumbar, Tender, Deformity Psychiatric: Anxiety Affect: Anxious Speech Pattern: Clear, Appropriate - Assessment/Plan (1) Pneumonia Status: Acute Plan: ADMIT, SUPPLEMENTAL O2. IV ATBX, BLOOD AND SPUTUM CULTURE. STRICT I & O. LE DOPPLER, DUO NEBS. AM LABS, VERIFY HOME MEDICATION. BS AND BP CONTROL (2) Respiratory failure with hypoxia Qualifiers: Chronicity: acute Qualified Code(s): J96.01 - Acute respiratory failure with hypoxia Status: Acute (3) Hypertensive heart disease with CHF Qualifiers: Heart failure type: unspecified Qualified Code(s): I11.0 - Hypertensive heart disease with heart failure Status: Acute (4) Diabetes Qualifiers: Diabetes mellitus type: type 2 Diabetes mellitus customer professional insulin use: without skilled nursing use Diabetes mellitus complication status: with circulatory complication Diabetes mellitus complication detail: with other circulatory complications Qualified Code(s): E11.59 - Type 2 diabetes mellitus with other circulatory complications Status: Acute - Allergies Allergies/Adverse Reactions: Allergies Allergy/AdvReac Type Severity Reaction Status Date / Time No Known Drug Allergies Allergy Verified 12/13/18 14:24
[2018-12-14] MEDS: LEVAQUIN PREMIX IV 500 MG 500 MG/100 ML BAG IV SCH (13:55)
[2018-12-14 14:20] LABS: ABG BASE EXCESS 7.2 mmol/L (-2.0-2.0)
[2018-12-14 14:21] LABS: ABG ALLEN TEST POS; ABG HCO3 31.2 mmol/L (22-26)
--- NOTE | 2018-12-14 15:56 | PCM.PROG ---
Progress Note - Progress Note for Day of Date of Exam: 12/14/18 - Subjective Subjective: 58 BM ER ADMISSION WITH SYNCOPE, SOB, PNEUMONIA. PT CO INCREASED LEFT LOWER LEG PAIN, WITH INCREASED SWELLING. PT HAS HAD PREVIOUS LEFT GREAT TOE AMPUTATED. DIFFUSE LOWER LEG SWELLING, VOSS CATH PLACED ON ADMISSION WITH 7000CC URINE OUTPUT. PT IS CURRENTLY ON IV LEVAQUIN AND ZOSYN. VENOUS DOPPLER ORDERED FOR TODAY, OBTAIN ECHO, A1C. CONTINUE RESP THERAPY, SUPPLEMENAL O2 - Past Medical Family Social History Past Med/Fam/Surg Hx: No changes since H&P Allergies: Allergies No Known Drug Allergies Allergy (Verified 12/13/18 14:24) - Review of Systems ROS: No change since H&P - Vital Signs and I&O's Vital Signs: Temperature 98.0 F Pulse Rate [Left Brachial] 72 Pulse Rate 71 Respiratory Rate 20 Blood Pressure [Right Arm] 125/61 Blood Pressure [Left Arm] 128/65 Blood Pressure 187/85 O2 Sat by Pulse Oximetry 99 Intake and Output: Intake & Output 12/12/18 12/13/18 12/14/18 12/15/18 11:59 11:59 11:59 11:59 Intake Total 980 / 980 Output Total 7975 / 7975 Balance -6995 / -6995 - Physical Exam Oriented: Normal Eyes: Normal Ear: Normal Nose: Normal Throat: Normal Respiratory: Diminished, Wheezes Cardiovascular: Edema : Normal, Hematuria Tenderness: Normal Skin: Red, Tender Musculoskeletal: Left, Back:Lumbar, Tender, Deformity Psychiatric: Anxiety Affect: Anxious Speech Pattern: Clear, Appropriate - Laboratory and Diagnostics Result Diagrams: 12/14/18 04:11 12/14/18 12:54 Labs: Laboratory WBC 7.4 X10^3/uL (3.6-10.0) 12/14/18 04:11 RBC 3.69 X10^6/uL (4.7-6.0) L 12/14/18 04:11 Hgb 10.9 g/dL (13.5-18.0) L 12/14/18 04:11 Hct 32.8 % (42.0-54.0) L 12/14/18 04:11 MCV 89.1 fL (80.0-100.0) 12/14/18 04:11 MCH 29.6 pg (27.0-34.0) 12/14/18 04:11 MCHC 33.2 g/dL (33.0-35.0) 12/14/18 04:11 RDW 15.8 % (11.6-16.5) 12/14/18 04:11 Plt Count 240 X10^3/uL (150.0-450.0) 12/14/18 04:11 MPV 9.0 fL (7.4-11.0) 12/14/18 04:11 Neut % (Auto) 65.1 % (42.0-75.0) 12/14/18 04:11 Lymph % (Auto) 18.8 % (21.0-51.0) L 12/14/18 04:11 [place] % (Auto) 11.0 % (0.0-13.0) 12/14/18 04:11 Eos % (Auto) 4.4 % (0.9-2.9) H 12/14/18 04:11 Baso % (Auto) 0.7 % (0.2-1.0) 12/14/18 04:11 Neut # (Auto) 4.8 x10^3/uL (2.2-4.8) 12/14/18 04:11 Lymph # (Auto) 1.4 X10^3/uL (1.3-2.9) 12/14/18 04:11 [place] # (Auto) 0.8 x10^3/uL (0.3-0.8) 12/14/18 04:11 Eos # (Auto) 0.3 x10^3/uL (0.0-0.2) H 12/14/18 04:11 Baso # (Auto) 0.0 X10^3/uL (0.0-0.1) 12/14/18 04:11 Absolute Nucleated RBC 0.0 /100WBC 12/14/18 04:11 INR Target Range - 12/13/18 14:22 INR 1.13 (0.8-1.3) 12/13/18 14:22 APTT 34.5 SECONDS (22.9-36.5) 12/13/18 14:22 PTT Comment - 12/13/18 14:22 D-Dimer 381 ng/mL (0-400) 12/13/18 14:22 Sample Site Rr 12/14/18 14:13 ABG pH 7.490 (7.35-7.45) H 12/14/18 14:13 ABG pCO2 41.0 mmHg (35.0-45.0) 12/14/18 14:13 ABG pO2 98.0 mmHg (80.0-100.0) 12/14/18 14:13 ABG HCO3 31.2 mmol/L (22-26) H* 12/14/18 14:13 ABG O2 Saturation 98.0 % (90-100) 12/14/18 14:13 ABG Base Excess 7.2 mmol/L (-2.0-2.0) H 12/14/18 14:13 Bear Test Pos 12/14/18 14:13 A-a Gradient 50.0 mmHg 12/14/18 14:13 FiO2 28.0 12/14/18 14:13 Blood Gas Comments Abdirahman well cb 12/14/18 14:13 Sodium 144 mmol/L (136-145) 12/14/18 04:11 Corrected Sodium TNP 12/14/18 04:11 Potassium 4.1 mmol/L (3.5-5.1) 12/14/18 12:54 Chloride 106 mmol/L (98-107) 12/14/18 04:11 Carbon Dioxide 29.5 mmol/L (21-32) 12/14/18 04:11 BUN 11 mg/dL (7-18) 12/14/18 04:11 Creatinine 1.07 mg/dL (0.70-1.30) 12/14/18 04:11 Est GFR (MDRD) Af Amer > 60 (>60) 12/14/18 04:11 Est GFR (MDRD) Non-Af > 60 (>60) 12/14/18 04:11 Glucose 106 mg/dL (65-99) H 12/14/18 04:11 Hemoglobin A1c 8.3 % 12/14/18 04:11 Calcium 8.5 mg/dL (8.5-10.1) 12/14/18 04:11 Corrected Calcium 9.2 mg/dL (8.5-10.1) 12/14/18 04:11 Magnesium 2.0 mg/dL (1.7-2.9) 12/14/18 04:11 Total Bilirubin 0.60 mg/dL (0.2-1.0) 12/14/18 04:11 AST 10 Units/L (15-37) L 12/14/18 04:11 ALT 13 Units/L (12-78) 12/14/18 04:11 Alkaline Phosphatase 73 Units/L (46-116) 12/14/18 04:11 Creatine Kinase 67 Units/L (39-308) 12/14/18 12:54 CK-MB (CK-2) < 1.0 ng/mL (0-4.0) 12/14/18 12:54 CK/CKMB % Calc 1.5 % (<4) 12/14/18 12:54 Troponin I < 0.02 ng/mL (0-1.5) 12/14/18 12:54 B-Natriuretic Peptide 241 pg/mL (0-79) H 12/13/18 14:22 Total Protein 7.2 g/dL (6.4-8.2) 12/14/18 04:11 Albumin 3.1 g/dL (3.4-5.0) L 12/14/18 04:11 Globulin 4.1 g/dL (2.5-4.5) 12/14/18 04:11 Albumin/Globulin Ratio 0.8 Ratio (1.1-2.1) L 12/14/18 04:11 Specimen Type Catherized urine 12/13/18 14:47 Urine Color Yellow (YELLOW) 12/13/18 14:47 Urine Appearance Hazy (CLEAR) 12/13/18 14:47 Urine pH 5.0 (5.0 - 8.0) 12/13/18 14:47 Ur Specific [place] 1.015 (1.000-1.030) 12/13/18 14:47 Urine Protein 2+ (NEGATIVE) 12/13/18 14:47 Urine Glucose (UA) 4+ (NEGATIVE) 12/13/18 14:47 Urine Ketones Negative (NEGATIVE) 12/13/18 14:47 Urine Occult Blood 1+ (NEGATIVE) 12/13/18 14:47 Urine Nitrite Negative (NEGATIVE) 12/13/18 14:47 Urine Bilirubin Negative (NEGATIVE) 12/13/18 14:47 Urine Urobilinogen Normal (NORMAL) 12/13/18 14:47 Ur Leukocyte Esterase Negative (NEGATIVE) 12/13/18 14:47 Urine RBC 3-5 /HPF (NONE SEEN) 12/13/18 14:47 Urine WBC 3-5 /HPF (NONE SEEN) 12/13/18 14:47 Ur Squamous Epith Cells Rare /HPF (NEGATIVE) 12/13/18 14:47 Urine Bacteria Trace /HPF (NEGATIVE) 12/13/18 14:47 Urine Mucus Few /HPF (NEGATIVE) 12/13/18 14:47 Ur Culture Indicated? No/not indicated 12/13/18 14:47 - Plan (1) Pneumonia Status: Acute Plan: PNEUMONIA PROTOCOL, SUPPLEMENTAL O2. IV ATBX, BLOOD AND SPUTUM CULTURES ORDERED ON ADMISSION. STRICT I & O. LE DOPPLER, DUO NEBS. AM LABS. BS AND BP CONTROL (2) Respiratory failure with hypoxia Status: Acute Qualifiers: Chronicity: acute Qualified Code(s): J96.01 - Acute respiratory failure with hypoxia (3) Hypertensive heart disease with CHF Status: Acute Qualifiers: Heart failure type: unspecified Qualified Code(s): I11.0 - Hypertensive heart disease with heart failure (4) Diabetes Status: Acute Qualifiers: Diabetes mellitus type: type 2 Diabetes mellitus care home insulin use: without terminal clerk use Diabetes mellitus complication status: with circulatory complication Diabetes mellitus complication detail: with other circulatory complications Qualified Code(s): E11.59 - Type 2 diabetes mellitus with other circulatory complications
[2018-12-14] MEDS ORDERED: NS 100 ML IV 100 ML ONE (17:05)
[2018-12-14] MEDS: ROXICODONE TAB 5 MG PO PRN (17:56)
[2018-12-14 18:06] LABS: CKMB % 1.7 % (<4); CREATINE KINASE 58 Units/L (39-308); CREATINE KINASE MB < 1.0 ng/mL (0-4.0); TROPONIN I < 0.02 ng/mL (0-1.5)
[2018-12-14] MEDS: SNACK - Diabetic Appropriate PO SCH (21:01)
--- NOTE | 2018-12-14 21:23 | CT ---
CT abdomen and pelvis with contrast Indication: Abdominal distention. Evaluate for obstruction. Comparison: No recent prior abdominal CT available Technique: Helical images through the abdomen and pelvis after IV and oral contrast. Coronal and sagittal reformats provided. Findings: Limited images through the lower chest demonstrate mild lung base scarring minimal dependent atelectasis. The heart size is enlarged. Gynecomastia is seen bilaterally. Postsurgical changes seen at the posterior acetabulum with DJD at the left hip presumably posttraumatic. Mild spine and pelvis DJD noted. Abdomen: The gallbladder, spleen, pancreas, adrenal glands, stomach and small bowel are normal. Oral contrast passes distally without obstruction. No acute colonic abnormality is seen. The appendix is normal. Vascular structures are intact. IVC filter is normal. The kidneys show no hydroureteronephrosis or stone. There is a large hypodense liver lesion. This shows a peripheral focus of enhancement on coronal image 34 and axial image 27, and may represent a hemangioma but a single phase images not completely determinant. This measures 5.6 x 5.4 cm on axial image 29. Pelvis: There is abdominal wall skin thickening. Urinary bladder is collapsed around a Uriostegui catheter. Prostate gland is normal. Rectum is normal Impression: 1. No evidence of bowel obstruction. The colon and small bowel are normal. 2. Cardiomegaly and chronic lung changes. 3. Large right lobe hepatic lesion, with characteristics possibly reflecting hemangioma. However, single-phase imaging is inadequate to convincingly determine and follow-up will be needed. Nonemergent MR imaging can confirm, with contrast 4. Skin thickening along the lower abdominal wall. Correlate for signs of infection 5. Spine degenerative change, IVC filter and posttraumatic change to the left hip with posttraumatic DJD. Reported By:
[2018-12-14 23:53] LABS: CKMB % 1.9 % (<4); CREATINE KINASE 54 Units/L (39-308); CREATINE KINASE MB < 1.0 ng/mL (0-4.0); TROPONIN I < 0.02 ng/mL (0-1.5)
[2018-12-15] MEDS: PROVENTIL NEB TX 0.083% 2.5MG/ 3ML NEB SCH ×5 (00:56→17:43)
[2018-12-15 05:23] LABS: BASOPHILS # (AUTO) 0.1 X10^3/uL (0.0-0.1); BASOPHILS % (AUTO) 0.7 % (0.2-1.0); EOSINOPHILS # (AUTO) 0.4 x10^3/uL (0.0-0.2); EOSINOPHILS % (AUTO) 5.6 % (0.9-2.9); HEMATOCRIT 33.7 % (42.0-54.0); HEMOGLOBIN 11.2 g/dL (13.5-18.0); LYMPHOCYTES # (AUTO) 1.6 X10^3/uL (1.3-2.9); LYMPHOCYTES % (AUTO) 22.5 % (21.0-51.0); MEAN CORPUSCULAR HEMOGLOBIN 29.8 pg (27.0-34.0); MEAN CORPUSCULAR HGB CONC 33.2 g/dL (33.0-35.0); MEAN CORPUSCULAR VOLUME 89.8 fL (80.0-100.0); MEAN PLATELET VOLUME 8.4 fL (7.4-11.0); MONOCYTES # (AUTO) 0.9 x10^3/uL (0.3-0.8); MONOCYTES % (AUTO) 12.5 % (0.0-13.0); NEUTROPHILS # (AUTO) 4.2 x10^3/uL (2.2-4.8); NEUTROPHILS % (AUTO) 58.7 % (42.0-75.0); PLATELET COUNT 239 X10^3/uL (150.0-450.0); RED BLOOD COUNT 3.75 X10^6/uL (4.7-6.0); RED CELL DISTRIBUTION WIDTH 15.8 % (11.6-16.5); WHITE BLOOD COUNT 7.1 X10^3/uL (3.6-10.0)
[2018-12-15 05:39] LABS: ALANINE AMINOTRANSFERASE 11 Units/L (12-78); ALBUMIN 2.9 g/dL (3.4-5.0); ALKALINE PHOSPHATASE 69 Units/L (46-116); ASPARTATE AMINO TRANSFERASE 9 Units/L (15-37); BLOOD UREA NITROGEN 18 mg/dL (7-18); CALCIUM 8.5 mg/dL (8.5-10.1); CARBON DIOXIDE 30.4 mmol/L (21-32); CHLORIDE 105 mmol/L (98-107); COR CA(FOR HYPOALB) 9.4 mg/dL (8.5-10.1); COR NA(FOR HYPERGLY) 143 mmol/L (136-145); CREATININE 1.24 mg/dL (0.70-1.30); SODIUM 142 mmol/L (136-145); eGFR NON BLACK RACES > 60 (>60)
[2018-12-15] MEDS: ZOSYN VIAL 3.375 GRAMS 3.375 G in NS 100 ML IV + SPIKE MINIBAG* 100 ML IV SCH ×3 (05:59→21:01)
[2018-12-15] MEDS: APRESOLINE TAB 25 MG PO SCH ×3 (06:00→21:02)
[2018-12-15] MEDS ORDERED: ZESTRIL TAB 20 MG ONE (08:02)
[2018-12-15] MEDS: JANUVIA PO SCH (08:32)
[2018-12-15] MEDS: ZESTRIL TAB 20 MG PO SCH (08:32)
[2018-12-15] MEDS: NEURONTIN TAB 600 MG PO SCH ×2 (08:32→21:01)
[2018-12-15] MEDS: K-LYTE EFFERVESCENT PO SCH (08:32)
[2018-12-15] MEDS: ZANAFLEX PO SCH ×2 (08:33→21:01)
[2018-12-15] MEDS: LEVAQUIN PREMIX IV 500 MG 500 MG/100 ML BAG IV SCH (08:33)
[2018-12-15] MEDS: COREG TAB 12.5 MG PO SCH ×2 (08:33→21:02)
[2018-12-15] MEDS: MOBIC TAB 15 MG PO SCH (08:34)
[2018-12-15] MEDS: LOVENOX INJ 40 MG SYR SC SCH (08:36)
[2018-12-15] MEDS ORDERED: SALINE 3% 15 ML NEB TX NEB ONE (09:53)
[2018-12-15] MEDS: HumuLIN R SUBCUT PRN ×2 (11:23→21:02)
[2018-12-15] MEDS: ROXICODONE TAB 5 MG PO PRN ×2 (12:36→21:07)
[2018-12-15] MEDS: NS 250 ML IV 250 ML IV SCH ×2 (13:54→15:40)
--- NOTE | 2018-12-15 15:39 | RAD ---
HISTORY: Severe right shoulder pain without trauma. Study: Four views of the cervical spine. Comparison: CT cervical spine dated March 18, 2013. Findings: Anatomic alignment without acute fracture or listhesis. Multi level [id number] disc space narrowing with associated endplate sclerosis and disc osteophyte complexes. Congenital spinal canal narrowing. Multilevel uncovertebral hypertrophy. The dens is intact. The prevertebral soft tissues and lung apices appear normal. IMPRESSION: Chronic findings as above. Reported By:
--- NOTE | 2018-12-15 15:41 | RAD ---
HISTORY: Severe right shoulder pain. No injury. Study: Two views of the right shoulder. Comparison: Right shoulder series dated February 14, 2018. Findings: No acute cortical disruption or dislocation can be identified. No significant soft tissue swelling or injury can be seen. Stable appearance of a right shoulder arthroplasty. The visualized lung is unremarkable. Mild osteoarthritis of the right acromioclavicular joint. IMPRESSION: Chronic findings as above. Reported By:
[2018-12-15] MEDS: SNACK - Diabetic Appropriate PO SCH (21:01)
[2018-12-16] MEDS: PROVENTIL NEB TX 0.083% 2.5MG/ 3ML NEB SCH ×4 (00:10→17:13)
[2018-12-16] MEDS: APRESOLINE TAB 25 MG PO SCH ×3 (05:25→21:00)
[2018-12-16] MEDS: NS 250 ML IV 250 ML IV SCH ×2 (05:25→14:07)
[2018-12-16] MEDS: ZOSYN VIAL 3.375 GRAMS 3.375 G in NS 100 ML IV + SPIKE MINIBAG* 100 ML IV SCH ×3 (05:26→21:00)
[2018-12-16 05:30] LABS: BASOPHILS # (AUTO) 0.1 X10^3/uL (0.0-0.1); BASOPHILS % (AUTO) 0.8 % (0.2-1.0); EOSINOPHILS # (AUTO) 0.6 x10^3/uL (0.0-0.2); EOSINOPHILS % (AUTO) 9.2 % (0.9-2.9); HEMATOCRIT 33.3 % (42.0-54.0); LYMPHOCYTES # (AUTO) 1.8 X10^3/uL (1.3-2.9); LYMPHOCYTES % (AUTO) 28.6 % (21.0-51.0); MEAN CORPUSCULAR HEMOGLOBIN 29.7 pg (27.0-34.0); MEAN CORPUSCULAR HGB CONC 33.1 g/dL (33.0-35.0); MEAN CORPUSCULAR VOLUME 89.9 fL (80.0-100.0); MEAN PLATELET VOLUME 8.5 fL (7.4-11.0); MONOCYTES # (AUTO) 0.8 x10^3/uL (0.3-0.8); MONOCYTES % (AUTO) 12.5 % (0.0-13.0); NEUTROPHILS # (AUTO) 3.1 x10^3/uL (2.2-4.8); NEUTROPHILS % (AUTO) 48.9 % (42.0-75.0); PLATELET COUNT 231 X10^3/uL (150.0-450.0); RED CELL DISTRIBUTION WIDTH 15.7 % (11.6-16.5); WHITE BLOOD COUNT 6.2 X10^3/uL (3.6-10.0)
[2018-12-16 05:35] LABS: ALANINE AMINOTRANSFERASE 9 Units/L (12-78); ALBUMIN 2.8 g/dL (3.4-5.0); ALKALINE PHOSPHATASE 64 Units/L (46-116); ASPARTATE AMINO TRANSFERASE 8 Units/L (15-37); BLOOD UREA NITROGEN 13 mg/dL (7-18); CALCIUM 8.6 mg/dL (8.5-10.1); CARBON DIOXIDE 28.7 mmol/L (21-32); CHLORIDE 105 mmol/L (98-107); COR CA(FOR HYPOALB) 9.6 mg/dL (8.5-10.1); COR NA(FOR HYPERGLY) 141 mmol/L (136-145); CREATININE 1.06 mg/dL (0.70-1.30); SODIUM 141 mmol/L (136-145); TOTAL PROTEIN 6.9 g/dL (6.4-8.2); eGFR NON BLACK RACES > 60 (>60)
--- NOTE | 2018-12-16 05:35 | RAD ---
Examination: AP chest History: SOB Comparison 12/13/2018 Findings: Continued cardiac enlargement. The lungs are clear of active disease. There is an angular deformity of the left lower cardiac border consistent with pleural-pericardial adhesion. Surgical hardware noted in the right shoulder. Impression: Cardiac enlargement. No acute abnormality demonstrated. Reported By:
[2018-12-16] MEDS ORDERED: ZESTRIL TAB 20 MG ONE (07:40)
[2018-12-16] MEDS: ZESTRIL TAB 20 MG PO SCH (09:15)
[2018-12-16] MEDS: LOVENOX INJ 40 MG SYR SC SCH (09:15)
[2018-12-16] MEDS: K-LYTE EFFERVESCENT PO SCH (09:15)
[2018-12-16] MEDS: LEVAQUIN PREMIX IV 500 MG 500 MG/100 ML BAG IV SCH (09:16)
[2018-12-16] MEDS: JANUVIA PO SCH (09:16)
[2018-12-16] MEDS: ZANAFLEX PO SCH ×2 (09:16→20:39)
[2018-12-16] MEDS: MOBIC TAB 15 MG PO SCH (09:16)
[2018-12-16] MEDS: COREG TAB 12.5 MG PO SCH ×2 (09:17→20:39)
[2018-12-16] MEDS: NEURONTIN TAB 600 MG PO SCH ×2 (09:17→20:39)
[2018-12-16] MEDS: ROXICODONE TAB 5 MG PO PRN ×2 (09:28→20:39)
[2018-12-16] MEDS: HumuLIN R SUBCUT PRN ×2 (11:50→20:46)
[2018-12-16] MEDS ORDERED: GLUCOPHAGE ONE (16:05)
[2018-12-16] MEDS: GLUCOPHAGE PO SCH (17:04)
[2018-12-16] MEDS: SNACK - Diabetic Appropriate PO SCH (20:47)
[2018-12-17] MEDS: PROVENTIL NEB TX 0.083% 2.5MG/ 3ML NEB SCH ×4 (00:09→17:00)
[2018-12-17] MEDS: NS 250 ML IV 250 ML IV SCH ×3 (05:21→17:11)
[2018-12-17] MEDS: APRESOLINE TAB 25 MG PO SCH ×3 (05:22→21:17)
[2018-12-17] MEDS ORDERED: GLUCOPHAGE ONE ×2 (05:31→16:40)
[2018-12-17] MEDS: ZOSYN VIAL 3.375 GRAMS 3.375 G in NS 100 ML IV + SPIKE MINIBAG* 100 ML IV SCH ×3 (06:01→21:17)
[2018-12-17] MEDS: GLUCOPHAGE PO SCH ×2 (06:02→17:11)
[2018-12-17 06:03] LABS: ALANINE AMINOTRANSFERASE 10 Units/L (12-78); ALBUMIN 2.9 g/dL (3.4-5.0); ALKALINE PHOSPHATASE 64 Units/L (46-116); ASPARTATE AMINO TRANSFERASE 8 Units/L (15-37); BLOOD UREA NITROGEN 12 mg/dL (7-18); CALCIUM 8.8 mg/dL (8.5-10.1); CARBON DIOXIDE 27.3 mmol/L (21-32); CHLORIDE 105 mmol/L (98-107); COR CA(FOR HYPOALB) 9.7 mg/dL (8.5-10.1); COR NA(FOR HYPERGLY) 141 mmol/L (136-145); CREATININE 1.01 mg/dL (0.70-1.30); SODIUM 141 mmol/L (136-145); TOTAL PROTEIN 7.1 g/dL (6.4-8.2); eGFR NON BLACK RACES > 60 (>60)
[2018-12-17 06:08] LABS: BASOPHILS % (AUTO) 0.8 % (0.2-1.0); EOSINOPHILS # (AUTO) 0.5 x10^3/uL (0.0-0.2); EOSINOPHILS % (AUTO) 9.2 % (0.9-2.9); HEMATOCRIT 33.3 % (42.0-54.0); HEMOGLOBIN 10.9 g/dL (13.5-18.0); LYMPHOCYTES # (AUTO) 1.7 X10^3/uL (1.3-2.9); MEAN CORPUSCULAR HEMOGLOBIN 29.2 pg (27.0-34.0); MEAN CORPUSCULAR HGB CONC 32.8 g/dL (33.0-35.0); MEAN CORPUSCULAR VOLUME 89.2 fL (80.0-100.0); MEAN PLATELET VOLUME 8.4 fL (7.4-11.0); MONOCYTES # (AUTO) 0.6 x10^3/uL (0.3-0.8); MONOCYTES % (AUTO) 10.9 % (0.0-13.0); NEUTROPHILS # (AUTO) 2.8 x10^3/uL (2.2-4.8); NEUTROPHILS % (AUTO) 49.1 % (42.0-75.0); PLATELET COUNT 235 X10^3/uL (150.0-450.0); RED BLOOD COUNT 3.73 X10^6/uL (4.7-6.0); RED CELL DISTRIBUTION WIDTH 15.8 % (11.6-16.5); WHITE BLOOD COUNT 5.6 X10^3/uL (3.6-10.0)
--- NOTE | 2018-12-17 06:09 | RAD ---
HISTORY: 58-year-old male with shortness of breath. Study: Frontal view of the chest. Comparison: Chest radiograph 12/16/2018 Findings: Surgical devices are unchanged. The trachea is midline. The cardiac silhouette is stably enlarged with worsening right basilar airspace opacities. Persistent small left effusion with left basilar scarring and prominent interstitium/perihilar lung markings without pneumothorax. Soft tissues are unremarkable. Osseous structures are unremarkable. IMPRESSION: 1. Worsening right basilar airspace opacities concerning for worsening infection. Persistent small left effusion. Correlate clinically. 2. Chronic cardiomegaly with findings consistent with history of COPD/asthma. Reported By:
[2018-12-17] MEDS ORDERED: ZESTRIL TAB 20 MG ONE (07:54)
[2018-12-17] MEDS: LOVENOX INJ 40 MG SYR SC SCH (08:21)
[2018-12-17] MEDS: LEVAQUIN PREMIX IV 500 MG 500 MG/100 ML BAG IV SCH (08:21)
[2018-12-17] MEDS: JANUVIA PO SCH (08:21)
[2018-12-17] MEDS: COREG TAB 12.5 MG PO SCH ×2 (08:21→21:17)
[2018-12-17] MEDS: K-LYTE EFFERVESCENT PO SCH (08:21)
[2018-12-17] MEDS: MILK OF MAGNESIA PO SCH ×2 (08:22→21:17)
[2018-12-17] MEDS: ZANAFLEX PO SCH ×2 (08:22→21:17)
[2018-12-17] MEDS: NEURONTIN TAB 600 MG PO SCH ×2 (08:22→21:17)
[2018-12-17] MEDS: MOBIC TAB 15 MG PO SCH (08:22)
[2018-12-17] MEDS: ROXICODONE TAB 5 MG PO PRN ×2 (08:23→21:17)
[2018-12-17] MEDS: ZESTRIL TAB 20 MG PO SCH (08:23)
--- NOTE | 2018-12-17 15:01 | PCM.PROG ---
Progress Note - Progress Note for Day of Date of Exam: 12/16/18 - Subjective Subjective: IS A 58 BM PATIENT OF WHO WAS AN ER ADMISSION WITH SYNCOPE, SOB, PNEUMONIA. HE REPORTS LEFT LOWER LEG PAIN. HE IS NOTED WITH DIFFUSE LOWER LEG SWELLING. BILATERAL LUNGS ARE NOTED WITH DIMINISHED LUNG SOUNDS THROUGHOUT. HE CONTINUES WITH SHORNTESS OF BREATH. HIS VITALS THIS MORNING ARE 98.4-62-20-95%NC-130/67. LABS WERE OBTAINED. ABNORMAL LAB VALUES INCLUDE THE FOLLOWING: RBC 3.70, HGB11.0, HCT 33.3, GLUCOSE 114, AST 8, ALT 9, ALBUMIN 2.8. BLOOD CULTURES ARE PENDING. TODAYS CHEST XRAY REVEALED: Continued cardiac enlargement. The lungs are clear of active disease. There is an angular deformity of the left lower cardiac border consistent with pleural-pericardial a dhesion. Surgical hardware noted in the right shoulder. PT IS CURRENTLY ON IV LEVAQUIN AND ZOSYN. CONTINUE RESP THERAPY, SUPPLEMENAL O2. OTHERWISE, WE WILL FOLLOW UP WITH AM LABS AND CONTINUE TO MONITOR. - Past Medical Family Social History Past Med/Fam/Surg Hx: No changes since H&P Allergies: Allergies No Known Drug Allergies Allergy (Verified 12/13/18 14:24) - Review of Systems ROS: No change since H&P - Vital Signs and I&O's Vital Signs: Temperature 98.0 F Pulse Rate [Left Brachial] 62 Pulse Rate 61 Respiratory Rate 20 Blood Pressure [Right Arm] 125/61 Blood Pressure [Left Arm] 128/72 Blood Pressure 187/85 O2 Sat by Pulse Oximetry 98 Intake and Output: Intake & Output 12/15/18 12/16/18 12/17/18 12/18/18 11:59 11:59 11:59 11:59 Intake Total 940 / 940 1465 / 1465 1755 / 1755 247 / 247 Output Total 3600 / 3600 2850 / 2850 3350 / 3350 Balance -2660 / -2660 -1385 / -1385 -1595 / -1595 247 / 247 - Physical Exam Oriented: Normal Eyes: Normal Ear: Normal Nose: Normal Throat: Normal Respiratory: Generalized, Diminished Cardiovascular: Edema : Normal, Hematuria Palpation: Normal Tenderness: Normal Skin: Red, Tender Musculoskeletal: Left, Back:Lumbar, Tender, Deformity Psychiatric: Anxiety Affect: Anxious Speech Pattern: Clear, Appropriate - Laboratory and Diagnostics Result Diagrams: 12/17/18 04:43 12/17/18 04:43 Labs: 12/14/18 13:00 Blood Blood Culture - Preliminary 12/14/18 12:54 Blood Blood Culture - Preliminary Laboratory WBC 5.6 X10^3/uL (3.6-10.0) 12/17/18 04:43 RBC 3.73 X10^6/uL (4.7-6.0) L 12/17/18 04:43 Hgb 10.9 g/dL (13.5-18.0) L 12/17/18 04:43 Hct 33.3 % (42.0-54.0) L 12/17/18 04:43 MCV 89.2 fL (80.0-100.0) 12/17/18 04:43 MCH 29.2 pg (27.0-34.0) 12/17/18 04:43 MCHC 32.8 g/dL (33.0-35.0) L 12/17/18 04:43 RDW 15.8 % (11.6-16.5) 12/17/18 04:43 Plt Count 235 X10^3/uL (150.0-450.0) 12/17/18 04:43 MPV 8.4 fL (7.4-11.0) 12/17/18 04:43 Neut % (Auto) 49.1 % (42.0-75.0) 12/17/18 04:43 Lymph % (Auto) 30.0 % (21.0-51.0) 12/17/18 04:43 [place] % (Auto) 10.9 % (0.0-13.0) 12/17/18 04:43 Eos % (Auto) 9.2 % (0.9-2.9) H 12/17/18 04:43 Baso % (Auto) 0.8 % (0.2-1.0) 12/17/18 04:43 Neut # (Auto) 2.8 x10^3/uL (2.2-4.8) 12/17/18 04:43 Lymph # (Auto) 1.7 X10^3/uL (1.3-2.9) 12/17/18 04:43 [place] # (Auto) 0.6 x10^3/uL (0.3-0.8) 12/17/18 04:43 Eos # (Auto) 0.5 x10^3/uL (0.0-0.2) H 12/17/18 04:43 Baso # (Auto) 0.0 X10^3/uL (0.0-0.1) 12/17/18 04:43 Absolute Nucleated RBC 0.1 /100WBC 12/17/18 04:43 INR Target Range - 12/13/18 14:22 INR 1.13 (0.8-1.3) 12/13/18 14:22 APTT 34.5 SECONDS (22.9-36.5) 12/13/18 14:22 PTT Comment - 12/13/18 14:22 D-Dimer 381 ng/mL (0-400) 12/13/18 14:22 Sample Site Rr 12/14/18 14:13 ABG pH 7.490 (7.35-7.45) H 12/14/18 14:13 ABG pCO2 41.0 mmHg (35.0-45.0) 12/14/18 14:13 ABG pO2 98.0 mmHg (80.0-100.0) 12/14/18 14:13 ABG HCO3 31.2 mmol/L (22-26) H* 12/14/18 14:13 ABG O2 Saturation 98.0 % (90-100) 12/14/18 14:13 ABG Base Excess 7.2 mmol/L (-2.0-2.0) H 12/14/18 14:13 Bear Test Pos 12/14/18 14:13 A-a Gradient 50.0 mmHg 12/14/18 14:13 FiO2 28.0 12/14/18 14:13 Blood Gas Comments Abdirahman well cb 12/14/18 14:13 Sodium 141 mmol/L (136-145) 12/17/18 04:43 Corrected Sodium 141 mmol/L (136-145) 12/17/18 04:43 Potassium 4.1 mmol/L (3.5-5.1) 12/17/18 04:43 Chloride 105 mmol/L (98-107) 12/17/18 04:43 Carbon Dioxide 27.3 mmol/L (21-32) 12/17/18 04:43 BUN 12 mg/dL (7-18) 12/17/18 04:43 Creatinine 1.01 mg/dL (0.70-1.30) 12/17/18 04:43 Est GFR (MDRD) Af Amer > 60 (>60) 12/17/18 04:43 Est GFR (MDRD) Non-Af > 60 (>60) 12/17/18 04:43 Glucose 118 mg/dL (65-99) H 12/17/18 04:43 Hemoglobin A1c 8.3 % 12/14/18 04:11 Calcium 8.8 mg/dL (8.5-10.1) 12/17/18 04:43 Corrected Calcium 9.7 mg/dL (8.5-10.1) 12/17/18 04:43 Magnesium 2.0 mg/dL (1.7-2.9) 12/14/18 04:11 Total Bilirubin 0.50 mg/dL (0.2-1.0) 12/17/18 04:43 AST 8 Units/L (15-37) L 12/17/18 04:43 ALT 10 Units/L (12-78) L 12/17/18 04:43 Alkaline Phosphatase 64 Units/L (46-116) 12/17/18 04:43 Creatine Kinase 54 Units/L (39-308) 12/14/18 23:20 CK-MB (CK-2) < 1.0 ng/mL (0-4.0) 12/14/18 23:20 CK/CKMB % Calc 1.9 % (<4) 12/14/18 23:20 Troponin I < 0.02 ng/mL (0-1.5) 12/14/18 23:20 B-Natriuretic Peptide 241 pg/mL (0-79) H 12/13/18 14:22 Total Protein 7.1 g/dL (6.4-8.2) 12/17/18 04:43 Albumin 2.9 g/dL (3.4-5.0) L 12/17/18 04:43 Globulin 4.2 g/dL (2.5-4.5) 12/17/18 04:43 Albumin/Globulin Ratio 0.7 Ratio (1.1-2.1) L 12/17/18 04:43 Specimen Type Catherized urine 12/13/18 14:47 Urine Color Yellow (YELLOW) 12/13/18 14:47 Urine Appearance Hazy (CLEAR) 12/13/18 14:47 Urine pH 5.0 (5.0 - 8.0) 12/13/18 14:47 Ur Specific [place] 1.015 (1.000-1.030) 12/13/18 14:47 Urine Protein 2+ (NEGATIVE) 12/13/18 14:47 Urine Glucose (UA) 4+ (NEGATIVE) 12/13/18 14:47 Urine Ketones Negative (NEGATIVE) 12/13/18 14:47 Urine Occult Blood 1+ (NEGATIVE) 12/13/18 14:47 Urine Nitrite Negative (NEGATIVE) 12/13/18 14:47 Urine Bilirubin Negative (NEGATIVE) 12/13/18 14:47 Urine Urobilinogen Normal (NORMAL) 12/13/18 14:47 Ur Leukocyte Esterase Negative (NEGATIVE) 12/13/18 14:47 Urine RBC 3-5 /HPF (NONE SEEN) 12/13/18 14:47 Urine WBC 3-5 /HPF (NONE SEEN) 12/13/18 14:47 Ur Squamous Epith Cells Rare /HPF (NEGATIVE) 12/13/18 14:47 Urine Bacteria Trace /HPF (NEGATIVE) 12/13/18 14:47 Urine Mucus Few /HPF (NEGATIVE) 12/13/18 14:47 Ur Culture Indicated? No/not indicated 12/13/18 14:47
[2018-12-17] MEDS: HumuLIN R SUBCUT PRN (17:14)
--- NOTE | 2018-12-17 18:52 | PCM.PROG ---
Progress Note - Progress Note for Day of Date of Exam: 12/17/18 - Subjective Subjective: IS A 58 BM PATIENT OF WHO WAS AN ER ADMISSION WITH SYNCOPE, SOB, PNEUMONIA. HE CONTINUES WITH SHORTNESS OF BREATH TODAY. HE IS NOTED WITH A NON-PRODUCTIVE COUGH. BILATERAL LUNGS ARE NOTED WITH DIMINISHED LUNG SOUNDS THROUGHOUT. HIS VITALS THIS MORNING ARE 97.9-61-20-100%-137/84. LABS WERE OBTAINED. ABNORMAL LAB VALUES INCLUDE THE FOLLOWING: RBC 3.73, HGB 10.9, HCT 33.3, GLUCOSE 118, AST 8, ALT 10, ALBUMIN 2.9. BLOOD CULTURES ARE PENDING. TODAYS CHEST XRAY REVEALED: Worsening right basilar airspace opacities concerning for worsening infection. Persistent small left effusion. Correlate clinically. Chronic cardiomegaly with findings consistent with history of COPD /asthma. PT IS CURRENTLY ON IV LEVAQUIN AND ZOSYN. CONTINUE RESP THERAPY, SUPPLEMENAL O2. OTHERWISE, WE WILL FOLLOW UP WITH AM LABS AND CONTINUE TO MONITOR. - Past Medical Family Social History Past Med/Fam/Surg Hx: No changes since H&P Allergies: Allergies No Known Drug Allergies Allergy (Verified 12/13/18 14:24) - Review of Systems ROS: No change since H&P - Vital Signs and I&O's Vital Signs: Temperature 97.6 F Pulse Rate [Left Brachial] 59 Pulse Rate 61 Respiratory Rate 20 Blood Pressure [Right Arm] 125/61 Blood Pressure [Left Arm] 149/65 Blood Pressure 187/85 O2 Sat by Pulse Oximetry 97 Intake and Output: Intake & Output 12/15/18 12/16/18 12/17/18 12/18/18 11:59 11:59 11:59 11:59 Intake Total 940 / 940 1465 / 1465 1755 / 1755 1027 / 1027 Output Total 3600 / 3600 2850 / 2850 3350 / 3350 1999 / 1999 Balance -2660 / -2660 -1385 / -1385 -1595 / -1595 -973 / -973 - Physical Exam Oriented: Normal Eyes: Normal Ear: Normal Nose: Normal Throat: Normal Respiratory: Generalized, Diminished Cardiovascular: Edema : Normal, Hematuria Tenderness: Normal Skin: Red, Tender Musculoskeletal: Left, Back:Lumbar, Tender, Deformity Psychiatric: Anxiety Affect: Anxious Speech Pattern: Clear, Appropriate - Laboratory and Diagnostics Result Diagrams: 12/17/18 04:43 12/17/18 04:43 Labs: 12/14/18 13:00 Blood Blood Culture - Preliminary 12/14/18 12:54 Blood Blood Culture - Preliminary Laboratory WBC 5.6 X10^3/uL (3.6-10.0) 12/17/18 04:43 RBC 3.73 X10^6/uL (4.7-6.0) L 12/17/18 04:43 Hgb 10.9 g/dL (13.5-18.0) L 12/17/18 04:43 Hct 33.3 % (42.0-54.0) L 12/17/18 04:43 MCV 89.2 fL (80.0-100.0) 12/17/18 04:43 MCH 29.2 pg (27.0-34.0) 12/17/18 04:43 MCHC 32.8 g/dL (33.0-35.0) L 12/17/18 04:43 RDW 15.8 % (11.6-16.5) 12/17/18 04:43 Plt Count 235 X10^3/uL (150.0-450.0) 12/17/18 04:43 MPV 8.4 fL (7.4-11.0) 12/17/18 04:43 Neut % (Auto) 49.1 % (42.0-75.0) 12/17/18 04:43 Lymph % (Auto) 30.0 % (21.0-51.0) 12/17/18 04:43 [place] % (Auto) 10.9 % (0.0-13.0) 12/17/18 04:43 Eos % (Auto) 9.2 % (0.9-2.9) H 12/17/18 04:43 Baso % (Auto) 0.8 % (0.2-1.0) 12/17/18 04:43 Neut # (Auto) 2.8 x10^3/uL (2.2-4.8) 12/17/18 04:43 Lymph # (Auto) 1.7 X10^3/uL (1.3-2.9) 12/17/18 04:43 [place] # (Auto) 0.6 x10^3/uL (0.3-0.8) 12/17/18 04:43 Eos # (Auto) 0.5 x10^3/uL (0.0-0.2) H 12/17/18 04:43 Baso # (Auto) 0.0 X10^3/uL (0.0-0.1) 12/17/18 04:43 Absolute Nucleated RBC 0.1 /100WBC 12/17/18 04:43 INR Target Range - 12/13/18 14:22 INR 1.13 (0.8-1.3) 12/13/18 14:22 APTT 34.5 SECONDS (22.9-36.5) 12/13/18 14:22 PTT Comment - 12/13/18 14:22 D-Dimer 381 ng/mL (0-400) 12/13/18 14:22 Sample Site Rr 12/14/18 14:13 ABG pH 7.490 (7.35-7.45) H 12/14/18 14:13 ABG pCO2 41.0 mmHg (35.0-45.0) 12/14/18 14:13 ABG pO2 98.0 mmHg (80.0-100.0) 12/14/18 14:13 ABG HCO3 31.2 mmol/L (22-26) H* 12/14/18 14:13 ABG O2 Saturation 98.0 % (90-100) 12/14/18 14:13 ABG Base Excess 7.2 mmol/L (-2.0-2.0) H 12/14/18 14:13 Bear Test Pos 12/14/18 14:13 A-a Gradient 50.0 mmHg 12/14/18 14:13 FiO2 28.0 12/14/18 14:13 Blood Gas Comments Abdirahman well cb 12/14/18 14:13 Sodium 141 mmol/L (136-145) 12/17/18 04:43 Corrected Sodium 141 mmol/L (136-145) 12/17/18 04:43 Potassium 4.1 mmol/L (3.5-5.1) 12/17/18 04:43 Chloride 105 mmol/L (98-107) 12/17/18 04:43 Carbon Dioxide 27.3 mmol/L (21-32) 12/17/18 04:43 BUN 12 mg/dL (7-18) 12/17/18 04:43 Creatinine 1.01 mg/dL (0.70-1.30) 12/17/18 04:43 Est GFR (MDRD) Af Amer > 60 (>60) 12/17/18 04:43 Est GFR (MDRD) Non-Af > 60 (>60) 12/17/18 04:43 Glucose 118 mg/dL (65-99) H 12/17/18 04:43 Hemoglobin A1c 8.3 % 12/14/18 04:11 Calcium 8.8 mg/dL (8.5-10.1) 12/17/18 04:43 Corrected Calcium 9.7 mg/dL (8.5-10.1) 12/17/18 04:43 Magnesium 2.0 mg/dL (1.7-2.9) 12/14/18 04:11 Total Bilirubin 0.50 mg/dL (0.2-1.0) 12/17/18 04:43 AST 8 Units/L (15-37) L 12/17/18 04:43 ALT 10 Units/L (12-78) L 12/17/18 04:43 Alkaline Phosphatase 64 Units/L (46-116) 12/17/18 04:43 Creatine Kinase 54 Units/L (39-308) 12/14/18 23:20 CK-MB (CK-2) < 1.0 ng/mL (0-4.0) 12/14/18 23:20 CK/CKMB % Calc 1.9 % (<4) 12/14/18 23:20 Troponin I < 0.02 ng/mL (0-1.5) 12/14/18 23:20 B-Natriuretic Peptide 241 pg/mL (0-79) H 12/13/18 14:22 Total Protein 7.1 g/dL (6.4-8.2) 12/17/18 04:43 Albumin 2.9 g/dL (3.4-5.0) L 12/17/18 04:43 Globulin 4.2 g/dL (2.5-4.5) 12/17/18 04:43 Albumin/Globulin Ratio 0.7 Ratio (1.1-2.1) L 12/17/18 04:43 Specimen Type Catherized urine 12/13/18 14:47 Urine Color Yellow (YELLOW) 12/13/18 14:47 Urine Appearance Hazy (CLEAR) 12/13/18 14:47 Urine pH 5.0 (5.0 - 8.0) 12/13/18 14:47 Ur Specific [place] 1.015 (1.000-1.030) 12/13/18 14:47 Urine Protein 2+ (NEGATIVE) 12/13/18 14:47 Urine Glucose (UA) 4+ (NEGATIVE) 12/13/18 14:47 Urine Ketones Negative (NEGATIVE) 12/13/18 14:47 Urine Occult Blood 1+ (NEGATIVE) 12/13/18 14:47 Urine Nitrite Negative (NEGATIVE) 12/13/18 14:47 Urine Bilirubin Negative (NEGATIVE) 12/13/18 14:47 Urine Urobilinogen Normal (NORMAL) 12/13/18 14:47 Ur Leukocyte Esterase Negative (NEGATIVE) 12/13/18 14:47 Urine RBC 3-5 /HPF (NONE SEEN) 12/13/18 14:47 Urine WBC 3-5 /HPF (NONE SEEN) 12/13/18 14:47 Ur Squamous Epith Cells Rare /HPF (NEGATIVE) 12/13/18 14:47 Urine Bacteria Trace /HPF (NEGATIVE) 12/13/18 14:47 Urine Mucus Few /HPF (NEGATIVE) 12/13/18 14:47 Ur Culture Indicated? No/not indicated 12/13/18 14:47
[2018-12-17] MEDS: SNACK - Diabetic Appropriate PO SCH (20:55)
[2018-12-17] MEDS ORDERED: COLACE CAP 100 MG PO SCH (21:00)
[2018-12-18] MEDS: PROVENTIL NEB TX 0.083% 2.5MG/ 3ML NEB SCH ×3 (00:36→11:55)
[2018-12-18] MEDS ORDERED: GLUCOPHAGE ONE (05:18)
[2018-12-18] MEDS: ROXICODONE TAB 5 MG PO PRN ×2 (05:50→14:38)
[2018-12-18 05:52] LABS: BASOPHILS # (AUTO) 0.1 X10^3/uL (0.0-0.1); BASOPHILS % (AUTO) 0.9 % (0.2-1.0); EOSINOPHILS # (AUTO) 0.6 x10^3/uL (0.0-0.2); EOSINOPHILS % (AUTO) 9.2 % (0.9-2.9); HEMATOCRIT 35.9 % (42.0-54.0); HEMOGLOBIN 11.8 g/dL (13.5-18.0); LYMPHOCYTES # (AUTO) 1.5 X10^3/uL (1.3-2.9); LYMPHOCYTES % (AUTO) 25.1 % (21.0-51.0); MEAN CORPUSCULAR HEMOGLOBIN 29.5 pg (27.0-34.0); MEAN CORPUSCULAR HGB CONC 32.8 g/dL (33.0-35.0); MEAN CORPUSCULAR VOLUME 89.7 fL (80.0-100.0); MEAN PLATELET VOLUME 8.5 fL (7.4-11.0); MONOCYTES # (AUTO) 0.6 x10^3/uL (0.3-0.8); MONOCYTES % (AUTO) 10.5 % (0.0-13.0); NEUTROPHILS # (AUTO) 3.3 x10^3/uL (2.2-4.8); NEUTROPHILS % (AUTO) 54.3 % (42.0-75.0); PLATELET COUNT 240 X10^3/uL (150.0-450.0); RED BLOOD COUNT 4.01 X10^6/uL (4.7-6.0); RED CELL DISTRIBUTION WIDTH 15.7 % (11.6-16.5); WHITE BLOOD COUNT 6.1 X10^3/uL (3.6-10.0)
--- NOTE | 2018-12-18 06:04 | RAD ---
HISTORY: Shortness of breath Study: Single view chest Comparison: 12/17/2018 Findings: No infiltrate, effusion or pneumothorax identified. Stable enlarged cardiac silhouette. There are chronic degenerative and postsurgical changes bony thorax. IMPRESSION: 1. Stable cardiomegaly without acute findings. Reported By:
[2018-12-18 06:06] LABS: ALANINE AMINOTRANSFERASE 13 Units/L (12-78); ALKALINE PHOSPHATASE 67 Units/L (46-116); ASPARTATE AMINO TRANSFERASE 12 Units/L (15-37); BLOOD UREA NITROGEN 13 mg/dL (7-18); CARBON DIOXIDE 26.2 mmol/L (21-32); CHLORIDE 104 mmol/L (98-107); COR CA(FOR HYPOALB) 9.8 mg/dL (8.5-10.1); COR NA(FOR HYPERGLY) 140 mmol/L (136-145); CREATININE 1.05 mg/dL (0.70-1.30); SODIUM 139 mmol/L (136-145); TOTAL PROTEIN 7.3 g/dL (6.4-8.2); eGFR NON BLACK RACES > 60 (>60)
[2018-12-18] MEDS: ZOSYN VIAL 3.375 GRAMS 3.375 G in NS 100 ML IV + SPIKE MINIBAG* 100 ML IV SCH ×2 (06:24→14:39)
[2018-12-18] MEDS: APRESOLINE TAB 25 MG PO SCH ×2 (06:24→14:38)
[2018-12-18] MEDS: NS 250 ML IV 250 ML IV SCH (06:24)
[2018-12-18] MEDS: GLUCOPHAGE PO SCH (06:25)
[2018-12-18] MEDS ORDERED: ZESTRIL TAB 20 MG ONE (08:18)
[2018-12-18] MEDS: COREG TAB 12.5 MG PO SCH (08:44)
[2018-12-18] MEDS: JANUVIA PO SCH (08:44)
[2018-12-18] MEDS: ZANAFLEX PO SCH (08:44)
[2018-12-18] MEDS: MOBIC TAB 15 MG PO SCH (08:44)
[2018-12-18] MEDS: K-LYTE EFFERVESCENT PO SCH (08:45)
[2018-12-18] MEDS: NEURONTIN TAB 600 MG PO SCH (08:45)
[2018-12-18] MEDS: LEVAQUIN PREMIX IV 500 MG 500 MG/100 ML BAG IV SCH (08:45)
[2018-12-18] MEDS: MILK OF MAGNESIA PO SCH (08:45)
[2018-12-18] MEDS: LOVENOX INJ 40 MG SYR SC SCH (08:45)
[2018-12-18] MEDS: ZESTRIL TAB 20 MG PO SCH (08:45)
[2018-12-18 16:14] VITALS: BP 128/65
== END 2018-12-18 16:32 | disposition home or self-care (01) | DRG 193 ==
LOC: ER 14:16 → MED/SURG 15:57
PROVIDERS: ADMIT Internal Medicine; ATTEND Internal Medicine
DX: R42 Dizziness and giddiness; I50.9 Heart failure, unspecified; J96.01 Acute respiratory failure with hypoxia; Z91.81 History of falling; K76.89 Other specified diseases of liver; R55 Syncope and collapse; M79.662 Pain in left lower leg; R60.0 Localized edema; M24.672 Ankylosis, left ankle; J18.9 Pneumonia, unspecified organism; I11.0 Hypertensive heart disease with heart failure; E11.65 Type 2 diabetes mellitus with hyperglycemia; Z89.412 Acquired absence of left great toe
CPT/HCPCS: 36415; 36600; 51702; 71010; 71045; 72040; 73030; 73630; 74177; 80053; 81001; 82550; 82553; 82803; 83036; 83735; 83880; 84132; 84484; 85025; 85378; 85610; 85730; 87040; 93005; 93306; 93970; 94640; 94760; 96365; 96374; 96375; 97110; 97162; 97166; 97530; 99284; A4222; J0360; J1650; J1815; J1940; J1956; J2543; J3475; J7050; J7613; J8499